=== PATIENT | female | born 1985 | race Hispanic/Latino ===

== ENCOUNTER 2018-08-13 19:25 | Emergency (ER) | payer SELFPAY ==
[2018-08-13] MEDS ORDERED: Lorazepam 1 MG TAB ONE (19:42)
== END 2018-08-13 20:00 | disposition home or self-care (01) ==
LOC: ERS 19:25
DX: F41.9 Anxiety disorder, unspecified (principal); V43.62XA Car passenger injured in collision with other type car in traffic accident, initial encounter
CPT/HCPCS: 99283